=== PATIENT | male | born 2000 | race Caucasian/White ===

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

== ENCOUNTER 2019-05-25 19:27 | Emergency (ER) | payer BC ==
--- NOTE | 2019-05-25 20:12 | ED ---
Adult Trauma - HPI Summary HPI Summary: This patient is a 19 year old male presenting to [facility] with a chief complaint of injuries after a fall on Saturday. The patient was skateboarding, fell, landed with his L elbow onto a screw. He was seen at [facility], stated it looked infected and was sent here. The patient reports pain proximal to the wound, which gets worse on extreme flexion and extension.. - History of Current Complaint Chief Complaint: EDExtremityUpper Stated Complaint: ELBOW PAIN PER PT Time Seen by Provider: 05/25/19 20:03 Hx Obtained From: Patient Onset/Duration: Started Hours Ago Pain Intensity: 5 Pain Scale Used: 0-10 Numeric Location: Extremities - Additional Pertinent History Primary Care Physician: NITHYA - Allergy/Home Medications Allergies/Adverse Reactions: Allergies Allergy/AdvReac Type Severity Reaction Status Date / Time No Known Allergies Allergy Verified 05/25/19 19:31 PMH/Surg Hx/FS Hx/Imm Hx Endocrine/Hematology History: Denies: Hx Diabetes Cardiovascular History: Denies: Hx Hypertension GI History: Reports: Hx Gastroesophageal Reflux Disease - no diagnosed, pt statement, Other GI Disorders - appendicitis Denies: Hx Crohn's Disease History: Denies: Hx Renal Disease Musculoskeletal History: Reports: Hx Back Problems, Hx Scoliosis, Other Musculoskeletal History - Hx scheuermann's kyphosis Sensory History: Denies: Hx Contacts or Glasses, Hx Hearing Aid Opthamlomology History: Denies: Hx Contacts or Glasses - Surgical History Hx Anesthesia Reactions: No Infectious Disease History: No Infectious Disease History: Denies: Traveled Outside the [place] in Last 30 Days - Family History Known Family History: Positive: Hypertension Negative: Cardiac Disease, Renal Disease, Respiratory Disease, Seizure Disorder - Social History Alcohol Use: Occasionally Substance Use Type: Reports: None Smoking Status (MU): Never Smoked Tobacco Review of Systems Negative: Fever Positive: Other - left arm pain Skin: Other - Puncture wound left elbow. All Other Systems Reviewed And Are Negative: Yes Physical Exam - Summary Physical Exam Summary: Appearance: The patient is well-nourished in no acute distress and in no acute pain. Skin: The skin is warm and dry, and skin color reflects adequate perfusion. Cellulitis over left elbow, puncture wound over the olecranon. Tender to palpation over the olecranon and proximal posterior left arm. HEENT: The head is normocephalic and atraumatic. The pupils are equal and reactive. The conjunctivae are clear and without drainage. Nares are patent and without drainage. Mouth reveals moist mucous membranes, and the throat is without erythema and exudate. The external ears are intact. The ear canals are patent and without drainage. The tympanic membranes are intact. Neck: The neck is supple with full range of motion and non-tender. There are no carotid bruits. There is no neck vein distension. Respiratory: Chest is non-tender. Lungs are clear to auscultation and breath sounds are symmetrical and equal. Cardiovascular: Heart is regular rate and rhythm. There is no murmur or rub auscultated. There is no peripheral edema and pulses are symmetrical and equal. Abdomen: The abdomen is soft and non-tender. There are normal bowel sounds heard in all four quadrants and there is no organomegaly palpated. Musculoskeletal: There is no back tenderness noted. Extremities are non-tender with full range of motion. There is good capillary refill. There is no peripheral edema or calf tenderness elicited. Neurological: Patient is alert and oriented to person, place and time. The patient has symmetrical motor strength in all four extremities. Cranial nerves are grossly intact. Deep tendon reflexes are symmetrical and equal in all four extremities. Psychiatric: The patient has an appropriate affect and does not exhibit any anxiety or depression. Triage Information Reviewed: Yes Vital Signs On Initial Exam: Initial Vitals Temp Pulse Resp BP Pulse Ox 98.4 F 103 15 162/98 98 05/25/19 19:30 05/25/19 19:30 05/25/19 19:30 05/25/19 19:30 05/25/19 19:30 Vital Signs Reviewed: Yes Procedures - Sedation Patient Received Moderate/Deep Sedation with Procedure: No Diagnostics - Vital Signs Vital Signs Temp Pulse Resp BP Pulse Ox 05/25/19 19:30 98.4 F 103 15 162/98 98 - Laboratory Result Diagrams: 05/25/19 21:14 05/25/19 21:14 Lab Statement: Any lab studies that have been ordered have been reviewed, and results considered in the medical decision making process. - Radiology Left Elbow XR Radiology Interpretation Completed By: ED Physician Summary of Radiographic Findings: Anterior fat pad flagging. Pending official radiologist report. Adult Trauma Course/Dx - Course Course Of Treatment: Mr. Child had a clear cellulitis over his left elbow. He had mild tenderness to ROM. He was tender to palpation and it was difficult to tell whether the bursa or joint was involved. He was non-toxic in appeqarance with stable vitals and he had no leukocytosis. I cannot aspirate the bursa with the overlying cellulitis therefore, I recommended antibiotics, sling and F/ U with Ortho for further evaluation.. He is to return if worsening. I spoke with both him and his mother (by phone) and they understand the plan. - Diagnoses Provider Diagnoses: Cellulitis Discharge ED - Sign-Out/Discharge Documenting (check all that apply): Patient Departure - Discharge - Discharge Plan Condition: Stable Disposition: HOME Prescriptions: Cephalexin CAP* [Keflex 500 CAP*] 500 mg PO QID #40 cap Patient Education Materials: Cellulitis (ED) Referrals: Gregory Bolden MD [Medical Doctor] - 2 Days Additional Instructions: Follow up with Orthopedics in 2-3 days. - Billing Disposition and Condition Condition: STABLE Disposition: Home - Attestation Statements Document Initiated by Laura: Yes Documenting Scribe: Babak Duran Provider For Whom Laura is Documenting (Include Credential): Parth Reynolds MD Scribe Attestation: I, Babak Duran, scribed for Parth Reynolds MD on 05/28/19 at 1643. Scribe Documentation Reviewed: Yes Provider Attestation: The documentation as recorded by the Babak pimentel accurately reflects the service I personally performed and the decisions made by me, Parth Reynolds MD Status of Scribe Document: Viewed
[2019-05-25] MEDS ORDERED: ceFAZolin 1 GM ADVAN(*) 1 GM in NS 0.9% 50 ML* 50 ML IVPB ONE (20:59)
[2019-05-25 21:26] LABS: ABS Eosinophils 0.1 10^3/ul (0-0.6); ABS Lymphocytes 1.3 10^3/ul (1.0-4.8); ABS Monocytes 0.8 10^3/ul (0-0.8); ABS Neutrophils 6.9 10^3/ul (1.5-7.7); Eosinophil % 0.6 %; Hematocrit 42 % (42-52); Hemoglobin 14.8 g/dL (14.0-18.0); Lymphocyte % 14.6 %; Mean Corpuscular HGB Conc 35 g/dL (31-36); Mean Corpuscular Hemoglobin 31 pg (27-31); Mean Corpuscular Volume 89 fL (80-94); Mean Platelet Volume 8.7 fL (7.4-10.4); Platelet Count 206 10^3/uL (150-450); Red Blood Count 4.72 10^6 /uL (4.18-5.48); Red Cell Distribution Width 14 % (10-15)
[2019-05-25 21:50] LABS: Albumin 4.6 g/dL (3.2-5.2); Albumin/Globulin Ratio 1.4 (1-3); BUN/Creatinine Ratio 15.6 (8-20); C Reactive Protein 3.81 mg/L (<8.01); EGFR African American 120.8 (>60); EGFR Non-African American 99.9 (>60); Globulin 3.2 g/dL (2-4); Total Bilirubin 0.5 mg/dL (0.2-1.0); Total Protein 7.8 g/dL (6.4-8.9)
[2019-05-25 22:16] VITALS: BP 133/89
[2019-05-25 22:31] LABS: Potassium 3.8 mmol/L (3.5-5.0)
== END 2019-05-25 22:15 | disposition home or self-care (01) ==
LOC: ED 19:27
DX: L03.114 Cellulitis of left upper limb (principal)
CPT/HCPCS: 36415; 80053; 85025; 86140; 96365; 99283; J0690